=== PATIENT | male | born 1960 | race Caucasian/White ===

== ENCOUNTER 2020-09-21 14:40 | Outpatient (CLI) | payer OTHER | END 2020-09-21 14:41 | disposition home or self-care (01) | LOC: RT 14:40 | PROVIDERS: ATTEND Nurse Practitioner Family | DX: R01.1 Cardiac murmur, unspecified (principal) | CPT/HCPCS: 93005 ==

== ENCOUNTER 2020-11-06 10:50 | Day surgery (SDC) | payer OTHER ==
[2020-11-06] MEDS ORDERED: LACTATED RINGERS 1,000 ML IV ONE ×2 (11:32→13:00)
--- NOTE | 2020-11-06 12:05 | ANESTHESIA ---
Pre-Anesthesia VS, & Labs - Diagnosis screening - Procedure colonoscopy Vital Signs: Temp Pulse Resp BP Pulse Ox 36.3 C L 65 18 166/96 H 99 11/06/20 11:14 11/06/20 11:14 11/06/20 11:14 11/06/20 11:14 11/06/20 11:14 Height: 5 ft 11 in Weight (kg): 92 kg Body Mass Index: 28.3 BMI Classification: Overweight - NPO >8 hours Home Medications and Allergies Home Medications: Ambulatory Orders Lisinopril [Prinivil] 10 mg PO DAILY 11/05/20 atenoloL [Tenormin] 25 mg PO DAILY 11/05/20 Lisinopril [Prinivil] 10 mg PO DAILY 11/05/20 atenoloL [Tenormin] 25 mg PO DAILY 11/05/20 Allergies/Adverse Reactions: Allergies Allergy/AdvReac Type Severity Reaction Status Date / Time No Known Drug Allergies Allergy Verified 11/06/20 11:35 Anes History & Medical History - Anesthetic History Anesthesia Complications: reports: No previous complications - Medical History Cardiovascular: reports: Hypertension Pulmonary: reports: None Gastrointestinal: reports: None Urinary: reports: None Musculoskeletal: reports: None Endocrine/Autoimmune: reports: None Skin: reports: None Smoking Status: Never smoker History of Cancer?: No - Surgical History General: reports: 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
[2020-11-06] MEDS ORDERED: PROPOFOL 200 MG/20 ML VIAL IVP ONE (12:27)
[2020-11-06 13:15] VITALS: BP 133/96
--- NOTE | 2020-11-06 14:38 | ANESTHESIA POST OP EVALUATION ---
Anesthesia Post Eval - Post Anesthesia Eval Vitals: Last Vital Signs Temp 36.3 C L 11/06/20 13:14 Pulse 60 11/06/20 13:14 Resp 14 11/06/20 13:14 BP 133/96 H 11/06/20 13:14 Pulse Ox 97 11/06/20 13:14 CV Function Including HR & BP: Stable Pain Control: Satisfactory Nausea & Vomiting: Negative Mental Status: Baseline Respiratory Status: Airway Patent Hydration Status: Satisfactory Anesthesia Complications: None
== END 2020-11-06 10:51 | disposition home or self-care (01) ==
LOC: SDS 10:50
PROVIDERS: ATTEND Surgery
DX: Z12.11 Encounter for screening for malignant neoplasm of colon (principal); I10 Essential (primary) hypertension; E78.00 Pure hypercholesterolemia, unspecified; K64.8 Other hemorrhoids; E66.3 Overweight; Z68.28 Body mass index [BMI] 28.0-28.9, adult
CPT/HCPCS: 45378; J7120

== ENCOUNTER 2021-04-09 07:56 | Outpatient (CLI) | payer OTHER | END 2021-04-09 07:57 | disposition home or self-care (01) | LOC: DI 07:56 | PROVIDERS: ATTEND Nurse Practitioner Family | DX: R01.1 Cardiac murmur, unspecified (principal); I34.0 Nonrheumatic mitral (valve) insufficiency | CPT/HCPCS: 93306 ==

== ENCOUNTER 2021-10-30 17:46 | Outpatient (CLI) | payer OTHER | END 2021-10-30 17:47 | disposition short-term general hospital (02) | LOC: EMS 17:46 | DX: R07.9 Chest pain, unspecified (principal); R06.02 Shortness of breath | CPT/HCPCS: A0425; A0427 ==